=== PATIENT | female | born 1950 | race African-American/Black ===

== ENCOUNTER 2022-06-28 11:54 | Outpatient (CLI) | payer OTHER | END 2022-06-28 18:05 | disposition home or self-care (01) | LOC: SLB 11:54 | PROVIDERS: ATTEND Internal Medicine Cardiovascular Disease | DX: M19.90 Unspecified osteoarthritis, unspecified site (principal); I50.32 Chronic diastolic (congestive) heart failure | CPT/HCPCS: 36415; 36600; 82803-TC; 85379; 85651-TC ==